=== PATIENT | male | born 1985 | race Caucasian/White ===

== ENCOUNTER 2017-04-25 23:59 | Emergency (ER) | payer SELFPAY ==
[~2017-04-25] VITALS: Ht 193 cm; Wt 119.2 kg
[2017-04-26 00:06] VITALS: BP 156/102; PULSE 65; RESP 18; TEMP 97.6; O2SAT 99
--- NOTE | 2017-04-26 01:47 | PD ---
HPI Chief Complaint: Abdominal Pain Time Seen by Provider: 01:11 Travel History International Travel<30 days: No Contact w/Intl Traveler<30days: No History of Present Illness HPI Patient is a 31-year-old male who this evening developed severe epigastric-like pain burning he is in so much pain he induced vomiting which did not relieve his symptoms. He did not take any medication to alleviate the symptoms she feels nauseous and severe epigastric area pain denies diarrhea and I sick contacts denies eating anything abnormal is annoyed past medical history is he has hepatitis C which he never received any treatment for. He has had no obvious symptoms began pain began a few hours earlier about 9:00 and did not see another doctor for this complaint.Past Hx includes Epidural abscess in the past . PFSH Social History Tobacco Use: No Allergies-Medications (Allergen,Severity, Reaction): Coded Allergies: No Known Drug Allergies (Verified Allergy, Unknown, 04/26/17) Reported Meds & Prescriptions Reported Meds & Active Scripts Active Pepcid (Famotidine) 20 Mg Tab 20 Mg PO BID Magic Mouthwash Pediatric/Adult Liq (Lidocaine/Diphenhydr/Alum/Mg/Simeth) 60 Ml Susp 5 Ml SWISH-SWAL ACHS Each 5mL contains: Diphenydramine 4.5mg, Viscous Lidocaine 2% 10mg, Maalox Advanced Regular Strength 2.7ml Reported Gabapentin 800 Mg Tab 1,100 Mg PO TID Review of Systems Except as stated in HPI: all other systems reviewed are Neg Gastrointestinal: Positive: Nausea, Vomiting, Abdominal Pain Physical Exam Narrative GENERAL: Holding his epigastrum reporting severe pain SKIN: Warm and dry. HEAD: Atraumatic. Normocephalic. EYES: Pupils equal and round. No scleral icterus. No injection or drainage. ENT: No nasal bleeding or discharge. Mucous membranes pink and moist. NECK: Trachea midline. No JVD. CARDIOVASCULAR: Regular rate and rhythm. RESPIRATORY: No accessory muscle use. Clear to auscultation. Breath sounds equal bilaterally. GASTROINTESTINAL: Abdomen + epigastrum.tender, nondistended. Hepatic and splenic margins not palpable. MUSCULOSKELETAL: Extremities without clubbing, cyanosis, or edema. No obvious deformities. NEUROLOGICAL: Awake and alert. No obvious cranial nerve deficits. Motor grossly within normal limits. Five out of 5 muscle strength in the arms and legs. Normal speech. PSYCHIATRIC: Appropriate mood and affect; insight and judgment normal. Data Data Last Documented VS Vital Signs Date Time Temp Pulse Resp B/P (MAP) Pulse Ox O2 Delivery O2 Flow Rate FiO2 04/26/17 05:34 97.6 56 15 112/70 (84) 97 Orders Orders Pantoprazole Inj (Protonix Inj) (04/26/17 02:00) Ondansetron Inj (Zofran Inj) (04/26/17 02:00) Al-Mag Hy-Si 40-40-4 Mg/Ml Liq (Mag-Al P (04/26/17 02:00) Lidocaine 2% Viscous (Xylocaine 2% Visco (04/26/17 02:00) Complete Blood Count With Diff (04/26/17 02:00) Comprehensive Metabolic Panel (04/26/17 02:00) Lipase (04/26/17 02:00) Troponin I (04/26/17 02:00) Ketorolac Inj (Toradol Inj) (04/26/17 03:15) Chest, Pa & Lat (04/26/17 ) Troponin I (04/26/17 05:04) Electrocardiogram (04/26/17 02:30) Labs Laboratory Tests Test 04/26/17 02:00 04/26/17 05:09 White Blood Count 8.6 TH/MM3 Red Blood Count 4.84 MIL/MM3 Hemoglobin 14.2 GM/DL Hematocrit 42.5 % Mean Corpuscular Volume 88.0 FL Mean Corpuscular Hemoglobin 29.4 PG Mean Corpuscular Hemoglobin Concent 33.4 % Red Cell Distribution Width 12.9 % Platelet Count 165 TH/MM3 Mean Platelet Volume 7.9 FL Neutrophils (%) (Auto) 71.2 % Lymphocytes (%) (Auto) 18.0 % Monocytes (%) (Auto) 8.1 % Eosinophils (%) (Auto) 1.2 % Basophils (%) (Auto) 1.5 % Neutrophils # (Auto) 6.2 TH/MM3 Lymphocytes # (Auto) 1.5 TH/MM3 Monocytes # (Auto) 0.7 TH/MM3 Eosinophils # (Auto) 0.1 TH/MM3 Basophils # (Auto) 0.1 TH/MM3 CBC Comment DIFF FINAL Differential Comment Blood Urea Nitrogen 23 MG/DL Creatinine 1.30 MG/DL Random Glucose 86 MG/DL Total Protein 7.4 GM/DL Albumin 3.8 GM/DL Calcium Level 8.7 MG/DL Alkaline Phosphatase 64 U/L Aspartate Amino Transf (AST/SGOT) 124 U/L Alanine Aminotransferase (ALT/SGPT) 225 U/L Total Bilirubin 1.8 MG/DL Sodium Level 141 MEQ/L Potassium Level 4.2 MEQ/L Chloride Level 106 MEQ/L Carbon Dioxide Level 27.8 MEQ/L Anion Gap 7 MEQ/L Estimat Glomerular Filtration Rate 65 ML/MIN Troponin I LESS THAN 0.02 NG/ML LESS THAN 0.02 NG/ML Lipase 142 U/L [facility] Medical Decision Making Medical Screen Exam Complete: Yes Emergency Medical Condition: Yes Differential Diagnosis gerd vs gastritis vs pancreatitis vs GB disease vs other ABDO NOS Narrative Course protonix and zofran GI cocktail only minimal relief than toradol, feels improved labs with mild LFTs elevated but pt knows he has Hep C untreated , I discuss Harvoni treatment and to follow up with a provider to get GI consult and trial of Harvoni if he hasn't already had Hep C treatment ... and exam lead me to feel further eval in ER or admission unwarranted d/c close follow up as out pt with PCP and GI.. Diagnosis Primary Impression: GERD (gastroesophageal reflux disease) Qualified Codes: K21.9 - Gastro-esophageal reflux disease without esophagitis Scripts Famotidine (Pepcid) 20 Mg Tab 20 MG PO BID, #30 TAB 0 Refills Prov: Thai Cruz MD 04/26/17 Zlwojfemldvgqvx-Yzwjoixfl-Zcm-Alum-Simeth Liq (Magic Mouthwash Pediatric/Adult Liq) 60 Ml Susp 5 ML SWISH-SWAL ACHS for Mouth sores, #60 ML 0 Refills Each 5mL contains: Diphenydramine 4.5mg, Viscous Lidocaine 2% 10mg, Maalox Advanced Regular Strength 2.7ml Prov: Thai Cruz MD 04/26/17 Disposition: DISCHARGE HOME Condition: Good Thai Cruz MD Apr 26, 2017 01:46
[2017-04-26] MEDS ORDERED: GABA800T PO (01:55)
[2017-04-26] MEDS ORDERED: ALUMINUM/MAGNESIUM/SIMETH 30 ML CUP PO ONE (02:00)
[2017-04-26] MEDS ORDERED: LIDOCAINE VISCOUS 2% SOLN 15 ML UDC SWISH-SWAL ONE (02:00)
[2017-04-26] MEDS ORDERED: PANTOPRAZOLE SODIUM 40 MG VIAL IV PUSH ONE (02:00)
[2017-04-26] MEDS: ONDANSETRON HCL 4 MG/2 ML VIAL IV PUSH PRN (02:10)
[2017-04-26 02:27] LABS: AUTOMATED NEUTROPHIL # 6.2 TH/MM3 (1.8-7.7); BASOPHIL # 0.1 TH/MM3 (0-0.2); BASOPHIL % 1.5 % (0.0-2.0); CHLORIDE 106 MEQ/L (98-107); EOSINOPHIL # 0.1 TH/MM3 (0-0.4); EOSINOPHIL % 1.2 % (0.0-4.0); HEMATOCRIT 42.5 % (39.0-51.0); HEMOGLOBIN 14.2 GM/DL (13.0-17.0); LYMPHOCYTE # 1.5 TH/MM3 (1.0-4.8); MEAN CORPUSCULAR HEMOGLOBIN 29.4 PG (27.0-34.0); MEAN CORPUSCULAR HGB CONC 33.4 % (32.0-36.0); MEAN PLATELET VOLUME 7.9 FL (7.0-11.0); MONO % 8.1 % (0.0-8.0); MONOCYTE # 0.7 TH/MM3 (0-0.9); NEUT % 71.2 % (16.0-70.0); PLATELET COUNT 165 TH/MM3 (150-450); RED BLOOD COUNT 4.84 MIL/MM3 (4.50-5.90); RED CELL DISTRIBUTION WIDTH 12.9 % (11.6-17.2); SODIUM (NA) 141 MEQ/L (136-145); WHITE BLOOD COUNT 8.6 TH/MM3 (4.0-11.0)
[2017-04-26 02:31] LABS: ALBUMIN 3.8 GM/DL (3.4-5.0); BICARBONATE 27.8 MEQ/L (21.0-32.0); CALCIUM 8.7 MG/DL (8.5-10.1); GLUCOSE,RANDOM 86 MG/DL (74-106); LIPASE 142 U/L (73-393)
[2017-04-26 02:32] LABS: BLOOD UREA NITROGEN 23 MG/DL (7-18)
[2017-04-26 02:34] LABS: ALT (GPT) 225 U/L (12-78); AST (GOT) 124 U/L (15-37); GLOMERULAR FILTRATION RATE 65 ML/MIN (>89)
[2017-04-26 02:36] LABS: TOTAL BILIRUBIN ADULT 1.8 MG/DL (0.2-1.0); TOTAL PROTEIN 7.4 GM/DL (6.4-8.2)
[2017-04-26 02:37] LABS: ALKALINE PHOSPHATASE 64 U/L (45-117)
[2017-04-26 02:50] LABS: TROPONIN I LESS THAN 0.02 NG/ML (0.02-0.05)
[2017-04-26] MEDS ORDERED: KETOROLAC TROMETHAMINE 30 MG/ML (IVP) VIAL IV PUSH ONE (03:15)
--- NOTE | 2017-04-26 03:44 | RADRPT ---
EXAM DATE/TIME: 04/26/2017 03:17 [facility] COMPARISON: No previous studies available for comparison. INDICATIONS : Chest and abdominal pain. MEDICAL HISTORY : None. SURGICAL HISTORY : None. ENCOUNTER: Initial ACUITY: 1 day PAIN SCORE: 7/10 LOCATION: Bilateral lower chest FINDINGS: PA and lateral views of the chest demonstrate the lungs to be symmetrically aerated without evidence of mass, infiltrate or effusion. The cardiomediastinal contours are unremarkable. Osseous structure s are intact. CONCLUSION: 1. No acute cardiopulmonary disease. Jez Morales MD on April 26, 2017 at 3:42 Board Certified Radiologist. This report was verified electronically.
[2017-04-26] MEDS ORDERED: FAMO1TAB37 PO (05:21)
[2017-04-26] MEDS ORDERED: MAGICPED SWISH-SWAL (05:21)
[2017-04-26 05:34] VITALS: BP 112/70; TEMP 97.6
--- NOTE | 2017-04-26 18:24 | EKG ---
Date Performed: 04/26/2017 Time Performed: 02:10:40 PTAGE: 31 years EKG: SINUS BRADYCARDIA EARLY REPOLARIZATION BORDERLINE ECG INTERPRETATION BASED ON A DEFAULT AGE OF 41 YEARS NO PREVIOUS TRACING DOCTOR: Maria Eugenia Wu Interpretating Date/Time 04/26/2017 18:23:56
== END 2017-04-26 05:40 | disposition home or self-care (01) ==
LOC: PHED 23:59
DX: K21.9 Gastro-esophageal reflux disease without esophagitis (principal); R00.1 Bradycardia, unspecified
CPT/HCPCS: 71046; 80053; 83690; 84484; 85025; 93005; 96374; 96375; 99285; C9113; J1885; J2405

== ENCOUNTER 2017-05-17 21:08 | Emergency (ER) | payer SELFPAY ==
[~2017-05-17] VITALS: Ht 190.5 cm; Wt 114.0 kg
[~2017-05-17 21:08] MED LIST: FAMO1TAB37 PO; GABA800T PO; MAGICPED SWISH-SWAL
[2017-05-17 21:32] VITALS: BP 163/98; PULSE 100; RESP 20; O2SAT 99
[2017-05-17] MEDS ORDERED: SODIUM CHLORIDE 0.9% FLUSH 10 ML FLUSH IVF PRN (21:45)
[2017-05-17 22:29] LABS: AUTOMATED NEUTROPHIL # 8.3 TH/MM3 (1.8-7.7); BASOPHIL % 0.2 % (0.0-2.0); EOSINOPHIL % 0.2 % (0.0-4.0); HEMATOCRIT 42.3 % (39.0-51.0); HEMOGLOBIN 14.9 GM/DL (13.0-17.0); LYMPH % 15.7 % (9.0-44.0); LYMPHOCYTE # 1.7 TH/MM3 (1.0-4.8); MEAN CELL VOLUME 86.4 FL (80.0-100.0); MEAN CORPUSCULAR HEMOGLOBIN 30.4 PG (27.0-34.0); MEAN CORPUSCULAR HGB CONC 35.2 % (32.0-36.0); MEAN PLATELET VOLUME 7.7 FL (7.0-11.0); MONO % 8.1 % (0.0-8.0); MONOCYTE # 0.9 TH/MM3 (0-0.9); NEUT % 75.8 % (16.0-70.0); PLATELET COUNT 149 TH/MM3 (150-450); RED BLOOD COUNT 4.89 MIL/MM3 (4.50-5.90); RED CELL DISTRIBUTION WIDTH 13.6 % (11.6-17.2)
--- NOTE | 2017-05-17 22:41 | RADRPT ---
EXAM DATE/TIME: 05/17/2017 22:00 [facility] COMPARISON: No previous studies available for comparison. INDICATIONS : Syncopal episode; Overdose. MEDICAL HISTORY : None. SURGICAL HISTORY : None. ENCOUNTER: Initial ACUITY: 1 day PAIN SCORE: 0/10 LOCATION: Bilateral chest FINDINGS: A single view of the chest demonstrates the lungs to be symmetrically aerated without evidence of mas s, infiltrate or effusion. The cardiomediastinal contours are unremarkable. Osseous structures are intact. CONCLUSION: No acute disease. Chato Mejia MD on May 17, 2017 at 22:38 Board Certified Radiologist. This report was verified electronically.
[2017-05-17 22:43] LABS: INTERNATIONAL NORMALIZED RATIO 1.2 RATIO; PROTHROMBIN TIME - PATIENT 11.7 SEC (9.8-11.6)
[2017-05-17 22:49] LABS: BICARBONATE 27.6 MEQ/L (21.0-32.0); BLOOD UREA NITROGEN 15 MG/DL (7-18); CHLORIDE 106 MEQ/L (98-107); CREATININE 1.22 MG/DL (0.60-1.30); GLOMERULAR FILTRATION RATE 70 ML/MIN (>89); GLUCOSE,RANDOM 95 MG/DL (74-106); MAGNESIUM 2.1 MG/DL (1.5-2.5); SODIUM (NA) 139 MEQ/L (136-145)
[2017-05-17 22:53] LABS: TROPONIN I LESS THAN 0.02 NG/ML (0.02-0.05)
--- NOTE | 2017-05-17 22:58 | PD ---
HPI Chief Complaint: OD/ Ingestion Time Seen by Provider: 21:31 (Noemy Schmitz) Time Seen by Provider: 21:30 (Chato Petersen MD) Travel History International Travel<30 days: No Contact w/Intl Traveler<30days: No Traveled to known affect area: No (Noemy Schmitz) History of Present Illness HPI 31-year-old male presents to the emergency room via ambulance for narcotic overdose. Patient admits to smoking heroin. States about 2 hours after ingesting it, he became unconscious at the long-term house. Paramedics administered 2 rounds of CPR, 0.8 mg intranasal Narcan, and 0.4 mg IV Narcan. Patient woke up. States he had a small headache on the ambulance that has resolved. He denies any complaints at this time. States he feels fine and would like to go. Only significant past medical history is hepatitis C and chronic back pain. (Noemy Schmitz) PFSH Past Medical History Diminished Hearing: No Hypertension: Yes Medical other: Yes (PT HAD ABSCESS REMOVED FROM SPINE UNDER ANESTHESIA) Tetanus Vaccination: < 5 Years Influenza Vaccination: No (Noemy Schmitz) Past Surgical History Surgical History: No Previous Surgery (Noemy Schmitz) Social History Alcohol Use: No Tobacco Use: No Substance Use: Yes (HERION, OXY) (Noemy Schmitz) Allergies-Medications (Allergen,Severity, Reaction): Coded Allergies: No Known Drug Allergies (Verified Allergy, Unknown, 05/17/17) Reported Meds & Prescriptions Reported Meds & Active Scripts Active Reported Gabapentin 800 Mg Tab 1,100 Mg PO TID (Chato Petersen MD) Review of Systems Except as stated in HPI: all other systems reviewed are Neg (Noemy Schmitz) Physical Exam Narrative GENERAL: Well-nourished, well-developed male in no acute distress. Afebrile. Ambulatory. SKIN: Focused skin assessment warm/dry. HEAD: Normocephalic. EYES: No scleral icterus. No injection or drainage. NECK: Supple, trachea midline. No JVD or lymphadenopathy. CARDIOVASCULAR: Regular rate and rhythm without murmurs, gallops, or rubs. RESPIRATORY: Breath sounds equal bilaterally. No accessory muscle use. CHEST: Nontender throughout without deformity or crepitus. No retractions or use of accessory muscles. NEUROLOGICAL: Awake and alert. Cranial nerves II through XII intact. Motor and sensory grossly within normal limits. Five out of 5 muscle strength in all muscle groups. Normal speech. (Noemy Schmitz) Data Data Last Documented VS Vital Signs Date Time Temp Pulse Resp B/P (MAP) Pulse Ox O2 Delivery O2 Flow Rate FiO2 05/17/17 22:03 99 Nasal Cannula 2.00 05/17/17 21:32 100 20 163/98 (119) (Chato Petersen MD) Orders Orders Electrocardiogram (05/17/17 21:43) Ckmb (Isoenzyme) Profile (05/17/17 21:43) Complete Blood Count With Diff (05/17/17 21:43) Magnesium (Mg) (05/17/17 21:43) Prothrombin Time / Inr (Pt) (05/17/17 21:43) Act Partial Throm Time (Ptt) (05/17/17 21:43) Troponin I (05/17/17 21:43) Chest, Single Ap (05/17/17 21:43) Ecg Monitoring (05/17/17 21:43) Bilateral Bp Monitoring (05/17/17 21:43) Iv Access Insert/Monitor (05/17/17 21:43) Oximetry (05/17/17 21:43) Oxygen Administration (05/17/17 21:43) Sodium Chloride 0.9% Flush (Ns Flush) (05/17/17 21:45) Basic Metabolic Panel (Bmp) (05/17/17 21:43) CKMB (05/17/17 22:12) CKMB% (05/17/17 22:12) (Chato Petersen MD) Labs Laboratory Tests Test 05/17/17 22:12 White Blood Count 11.0 TH/MM3 Red Blood Count 4.89 MIL/MM3 Hemoglobin 14.9 GM/DL Hematocrit 42.3 % Mean Corpuscular Volume 86.4 FL Mean Corpuscular Hemoglobin 30.4 PG Mean Corpuscular Hemoglobin Concent 35.2 % Red Cell Distribution Width 13.6 % Platelet Count 149 TH/MM3 Mean Platelet Volume 7.7 FL Neutrophils (%) (Auto) 75.8 % Lymphocytes (%) (Auto) 15.7 % Monocytes (%) (Auto) 8.1 % Eosinophils (%) (Auto) 0.2 % Basophils (%) (Auto) 0.2 % Neutrophils # (Auto) 8.3 TH/MM3 Lymphocytes # (Auto) 1.7 TH/MM3 Monocytes # (Auto) 0.9 TH/MM3 Eosinophils # (Auto) 0.0 TH/MM3 Basophils # (Auto) 0.0 TH/MM3 CBC Comment DIFF FINAL Differential Comment Prothrombin Time 11.7 SEC Prothromb Time International Ratio 1.2 RATIO Activated Partial Thromboplast Time 27.5 SEC Blood Urea Nitrogen 15 MG/DL Creatinine 1.22 MG/DL Random Glucose 95 MG/DL Calcium Level 9.0 MG/DL Magnesium Level 2.1 MG/DL Sodium Level 139 MEQ/L Potassium Level 3.3 MEQ/L Chloride Level 106 MEQ/L Carbon Dioxide Level 27.6 MEQ/L Anion Gap 5 MEQ/L Estimat Glomerular Filtration Rate 70 ML/MIN Total Creatine Kinase 277 U/L Creatine Kinase MB 3.2 NG/ML Troponin I LESS THAN 0.02 NG/ML (Chato Petersen MD) [facility] Medical Decision Making Medical Screen Exam Complete: Yes Emergency Medical Condition: Yes Medical Record Reviewed: Yes Differential Diagnosis Heroin overdose, cardiac arrest, medication side effect Narrative Course 31-year-old male presents to the emergency room for evaluation after overdosing on heroin. Paramedics stated on scene they performed 2 rounds of CPR. He woke up after 0.8 mg intranasal Narcan and 0.4 mg IV Narcan. Patient has no complaints in the ED. States he feels well and would like to go home. States his chest does not hurt. He has had rib fractures in the past and is not concerning for the same. Vital signs stable. He is afebrile and well-appearing in the emergency room. Interacting appropriately. Alert and oriented. Not lethargic. Chest is nontender to palpation. Lung sounds clear and equal bilaterally. Given history of CPR, IV access established and basic labs obtained. Chest x-ray is negative. CBC and CMP are completely unremarkable. Troponin is less than 0.02. She is sitting up, interacting appropriately, completely awake and oriented. He is stable for discharge. (Noemy Schmitz) Medical Screen Exam Complete: Yes Emergency Medical Condition: Yes (Chato Petersen MD) Diagnosis Primary Impression: Heroin overdose Qualified Codes: T40.1X1A - Poisoning by heroin, accidental (unintentional), initial encounter Referrals: [facility] Disposition: 01 DISCHARGE HOME Condition: Stable Noemy Schmitz May 17, 2017 22:58 Chato Petersen MD May 17, 2017 23:30
--- NOTE | 2017-05-18 19:24 | EKG ---
Date Performed: 05/17/2017 Time Performed: 23:00:44 PTAGE: 31 years EKG: SINUS TACHYCARDIA NONSPECIFIC T-WAVE ABNORMALITY Patient no longer has early repolarization -type changes Compared to previous tracing, nonspecific ST-T wave changes are new. Cannot exclude the possibility of previous pericarditis which has resolved ABNORMAL ECG PREVIOUS TRACING : 04/26/2017 02.10 DOCTOR: Nehemiah Cobian Interpretating Date/Time 05/18/2017 19:24:01
== END 2017-05-18 01:13 | disposition home or self-care (01) ==
LOC: NEPE 21:08
DX: T40.1X1A Poisoning by heroin, accidental (unintentional), initial encounter (principal); R51 Headache; M54.9 Dorsalgia, unspecified; G89.29 Other chronic pain; R00.0 Tachycardia, unspecified; R94.31 Abnormal electrocardiogram [ECG] [EKG]; I10 Essential (primary) hypertension; Z86.19 Personal history of other infectious and parasitic diseases; Z79.899 Other long term (current) drug therapy
CPT/HCPCS: 71045; 80048; 82550; 82552; 83735; 84484; 85025; 85610; 85730; 93005; 99285